=== PATIENT | male | born 1970 | race Caucasian/White ===

== ENCOUNTER 2016-12-03 17:32 | Inpatient (IN) | payer OTHER ==
[~2016-12-03] VITALS: Ht 182.9 cm; Wt 102.0 kg
--- NOTE | ~2016-12-03 | DS ---
Unit #: [id number] #: [id number] Patient: LEE RAM JR [id number] [address] [address] [id number] I MR#: [id number] NAME: LEE ARM JR ROOM: 46 Age: 46 Sex: M Admission Date: 12/04/2016 : 1970 Discharge Date: 12/07/2016 Attending Physician: Darrell Álvarez M.D. Primary Care Physician: Faisal Ni M.D. DISCHARGE SUMMARY PRIMARY DIAGNOSIS Sepsis. SECONDARY DIAGNOSES 1. Obstructive jaundice secondary to gallstones. 2. Acute pancreatitis secondary to obstructive gallstones. 3. Acute cholecystitis secondary to gallstones. 4. Diabetes mellitus type 2. 5. Hyponatremia. 6. Thrombocytopenia. 7. Transaminitis. 8. Ileus. 9. Polycythemia secondary to dehydration. 10. Dehydration. 11. Hypertension. 12. Legally blind. HOSPITAL COURSE The patient was admitted to the hospital and started on Zosyn. Consultations were obtained with Dr. Ochoa with gastroenterology and with Dr. Mcintyre with general surgery. The patient underwent ERCP with stent placement and was referred for laparoscopic cholecystectomy, which was performed on 12/06/2016. The patient had some mild hypotension postoperatively, which was responsive to fluid hydration. His lisinopril was discontinued and can be restarted outpatient if blood pressures and lab work support doing so. The patient's creatinine was 1.4 on the day of discharge. As the patient has had a source of infection removed, no additional antibiotics are felt to be needed at the time of discharge. DISCHARGE DISPOSITION Home. DISCHARGE STATUS Stable. ACTIVITY No driving until off pain medication for 24 hours. DIET Unrestricted. FOLLOWUP Unit #: [id number] #: [id number] Patient: LEE RAM JR 1. Follow up with Dr. Ni, his PCP, in one to three weeks. 2. Follow up with Dr. Ochoa on 01/27/2017 for ERCP and stent removal. 3. Follow up with Dr. Mcintyre with general surgery in two weeks. 4. He is also advised to return to the emergency room if he has any new or worsening symptoms. I specifically discussed fevers, chills, night sweats or increased postprandial pain, lightheadedness with the patient, or failure to tolerate diet. At the time of discharge the patient has none of the above symptoms and is tolerating a diet without any pain or nausea. DISCHARGE MEDICATIONS 1. Glucophage 2 tablets p.o. daily. 2. Zofran 4 mg p.o. q.6 h. p.r.n. nausea. 3. Allopurinol 2 tablets p.o. daily. Resume home dose. 4. [place] 7.5 1-2 tablets p.o. q.6 h. p.r.n. pain. The patient was given a prescription for [address] Mcintyre. Dictated by... Darrell Álvarez M.D. WSB/keith TD: 12/08/2016 07:25 JOB #: [id number] DISCHARGE SUMMARY Page 1 of 1 X Darrell Álvarez MD X DISCHARGE SUMMARY
--- NOTE | ~2016-12-03 | CO ---
Unit #: [id number] #: [id number] Patient: LEE RAM JR [id number] [address] [place], [place] [address] [id number] I MR#: [id number] NAME: LEE RAM JR ROOM: 46 Age: 46 Sex: M Admission Date: 12/04/2016 : 1970 Attending Physician: Darrell Álvarez M.D. Primary Care Physician: Faisal Ni M.D. Consultation Date: 12/04/2016 CONSULTATION REPORT CHIEF COMPLAINT Abdominal pain. HISTORY OF PRESENT ILLNESS This is a 46-year-old gentleman, who was transferred from [facility] for right flank pain and dark urine. The pain also radiates to his right thoracic area posteriorly. He also has had some nausea. The pain started several days ago and he has not had any prior episodes. PAST MEDICAL HISTORY Significant for diabetes, hypertension, and gout. PAST SURGICAL HISTORY He has undergone left hand surgery in the past. MEDICATIONS Please see med rec list for list of medications. ALLERGIES He has no known drug allergies. SOCIAL HISTORY He denies any tobacco or alcohol use. FAMILY HISTORY Negative. REVIEW OF SYSTEMS Negative for fevers. He has noticed some change in his coloration of his eyes and he also notices dark urine. PHYSICAL EXAMINATION VITAL SIGNS: Temperature is 98.0, heart rate 72, respiratory rate is 20, blood pressure is 153/70, BMI is 30. GENERAL: He is in no acute distress. He does have some scleral icterus. NECK: Without masses or bruits. LUNGS: Show good breath sounds bilaterally with equal air exchange. CARDIAC: Shows regular rate and rhythm without murmur. ABDOMEN: Soft, nondistended, and nontender with no organomegaly. EXTREMITIES: Without edema or cyanosis. NEUROLOGIC: He is alert and oriented. There are no focal deficits. DIAGNOSTIC STUDIES LABORATORY RESULTS: White blood count was 20,000, hemoglobin 16. Total Unit #: [id number] #: [id number] Patient: LEE RAM JR bilirubin was 5.1 yesterday. IMAGING STUDIES: Ultrasound showed several large gallstones. OVERALL IMPRESSION This is a 46-year-old gentleman, who likely has common bile duct stone. PLAN Plan is for GI to see the patient for possible ERCP and an interval laparoscopic cholecystectomy afterwards. Dictated by... Miguel Mcintyre III, M.D. VCL/lexy TD: 12/05/2016 17:09 JOB #: [id number] CONSULTATION REPORT Page 1 of 1 X Miguel Mcintyre III, MD X CONSULTATION REPORT
--- NOTE | ~2016-12-03 | EKG ---
PATIENT: LEE RAM UNIT #: [id number] Ventricular Rate: 84 BPM Atrial Rate: 84 BPM P-R Interval: 200 ms QRS Duration: 100 ms Q-T Interval: 362 ms QTC Calculation(Bezet): 427 ms P [place]: 58 degrees Calculated R [place]: 49 degrees Calculated T [place]: 12 degrees Diagnosis Line: Normal sinus rhythm Diagnosis Line: Normal ECG Diagnosis Line: When compared with ECG of 21-MAR-2016 01:55, Diagnosis Line: No significant change was found Diagnosis Line: Confirmed by OMEGA HEREDIA MD ([id number]) on 12/05/2016 Diagnosis Line: 2:02:09 PM INTERPRETING MD: YAN TAYLOR
--- NOTE | ~2016-12-03 | CR84 ---
[facility] A Service of [facility] RADIOLOGY TEXT RESULTS PATIENT: LEE RAM JR LOCATION: [place] [address] : [birth year] UNIT #: [id number] AGE: [address]: Darrell Álvarez MD SEX: M ORDER DR: [id number] [facility] [address] [facility]. [place], [place] [address] [id number] I MR#: [id number] Acc #: [id number] NAME: LEE RAM JR : 1970 SEX: M STUDY DATE/TIME: 12/05/2016 7:29 UNIT: [facility] ROOM: [facility] STUDY DESCRIPTION: CR ERCP Biliary and Pancr SI Attending Physician: Darrell Álvarez M.D. Ordering Physician: Matti Ochoa M.D. Primary Care Physician: Faisal Ni M.D. MEDICAL IMAGING REPORT This report is preliminary unless electronic signature is present EXAM ERCP, 12/05/2016 HISTORY Common bile duct stones, biliary pain for 3 days. Extensive cholelithiasis. ERCP performed for stent placement. FINDINGS ERCP was performed by Dr. Ochoa. 6 spot film radiographs of the right upper quadrant were obtained and 2 minutes of fluoroscopy time was utilized. The pancreatic duct was not injected. Injection of the biliary tree shows dilatation of the common bile duct with filling defects in the duct characteristic of stones. There is normal drainage of contrast into the duodenum and the distal common bile duct near the sphincter of Oddi was normal in appearance. Sphincterotomy was performed by Dr. Ochoa. Balloon catheter was pulled retrograde through the common duct removing stones as per Dr. Ochoa. A stent was then placed in the common bile duct. Dictated by... González Chavez M.D. THIS IS AN ELECTRONICALLY VERIFIED REPORT González Chavez M.D. at 12/06/2016 10:34 AM Barak TD: 12/05/2016 09:29 JOB #: [id number] MEDICAL IMAGING REPORT Page 1 of 1 COPY
--- NOTE | ~2016-12-03 | CT2 ---
[facility] A Service of [facility] RADIOLOGY TEXT RESULTS PATIENT: LEE RAM JR LOCATION: [place] [address] : [birth year] UNIT #: [id number] AGE: [address]: Сергей Luis MD SEX: M ORDER DR: [id number] [place] [id number] I MR#: [id number] Acc #: [id number] NAME: LEE RAM JR : 1970 SEX: M STUDY DATE/TIME: 12/03/2016 20:24 UNIT: [facility]OF ROOM: [id number] STUDY DESCRIPTION: CT Abd and Pelv W Cont Attending Physician: Сергей Luis M.D. Ordering Physician: Taz Rasmussen Aprn Primary Care Physician: Faisal Ni M.D. MEDICAL IMAGING REPORT This report is preliminary unless electronic signature is present. EXAM Abdomen and pelvis CT with contrast 12/03/2016 INDICATION 46-year-old male with blood in the urine, shaking, pain in the hands for 3 days, flank pain on the right, dark urine, history of renal failure, aches all over. TECHNIQUE Contrast enhanced CT abdomen and pelvis was performed and compared with 03/20/2016. This CT examination was performed with one or more of the following radiation dose reduction techniques: automatic exposure control, adjustment of mA and/or kV according to patient size, and iterative reconstruction. FINDINGS CT ABDOMEN: Minimal atelectasis in the lung bases. No effusion. Aorta unremarkable. Spleen, adrenal glands and pancreas unremarkable. There is chronic fullness of the pancreatic head without distinct evidence of focal pancreatic mass. There is no pancreatic ductal dilatation or distinct inflammatory change of the pancreas. Prominent periportal lymph nodes present and not significantly changed and therefore likely reactive. Liver unremarkable. There is cholelithiasis. The gallbladder measures 4.5 cm transverse. There is no convincing CT evidence of acute cholecystitis but this could be further assessed with ultrasound if there is clinical suspicion for acute cholecystitis. Kidneys demonstrate no hydronephrosis or distinct inflammatory change. Incidental tiny cyst in the left kidney. CT PELVIS: Bladder unremarkable. Prostate within normal limits. Tiny STS. [facility] A Service of [facility] RADIOLOGY TEXT RESULTS PATIENT: LEE RAM JR LOCATION: [facility] 460[address]01 : [birth year] UNIT #: [id number] AGE: [address]: Сергей Luis MD SEX: M ORDER DR: inguinal hernia on the right contains fat only. There is diverticulosis. No bowel obstruction. Appendix normal. No inguinal adenopathy or fluid collection. Top normal diameter small bowel loops opacified with contrast and fluid may reflect a mild ileus. No distinct evidence of bowel obstruction or focal inflammatory change of the bowel. There is no free air. No suspicious bone lesion. IMPRESSION 1. Extensive cholelithiasis. The gallbladder is distended without convincing CT evidence of acute cholecystitis but this could be better assessed with ultrasound if there is concern for acute cholecystitis. No intra- or extrahepatic biliary ductal dilatation. 2. Imaging features suggestive of diffuse small bowel ileus. No evidence of bowel obstruction. 3. The appendix is normal. 4. Incidental tiny left renal cyst. 5. Diverticulosis. Dictated by... Victoriano Banks M.D. THIS IS AN ELECTRONICALLY VERIFIED REPORT Victoriano Banks M.D. at 12/04/2016 11:31 PM CARRIE/moncho TD: 12/04/2016 13:01 JOB #: [id number] MEDICAL IMAGING REPORT Page 1 of 1
--- NOTE | ~2016-12-03 | OR ---
Unit #: [id number] #: [id number] Patient: LEE RAM JR [id number] [address] [address] [id number] I MR#: [id number] NAME: LEE RAM JR ROOM: 464 Date of Procedure: 12/05/2016 Admission Date: 12/04/2016 Surgeon: Matti Ochoa M.D. : 1970 Attending Physician: Darrell Álvarez M.D. Primary Care Physician: Faisal Ni M.D. OPERATIVE REPORT ADDITIONAL ATTENDING PHYSICIAN Shama Bennett M.D. PRIMARY CARE PHYSICIAN Faisal Ni M.D. PREOPERATIVE DIAGNOSES The patient has presented with biliary pain consistent with biliary colic and found to have dilated gallbladder, distended gallbladder with gallstones. Although, his common bile duct is not dilated. The liver function abnormalities are consistent with a passage of a common bile duct stone. He has therefore come for endoscopic retrograde cholangiopancreatography. PROCEDURES PERFORMED 1. Endoscopic retrograde cholangiopancreatography and stone extraction. 2. Endoscopic retrograde cholangiopancreatography and biliary and pancreatic stent placements. POSTOPERATIVE DIAGNOSES 1. The patient had normal major papilla and ampullary area. 2. Multiple stones were delivered after balloon extraction and sphincterotomy. These were pigmented stones along with debris. 3. A 10-Pakistani 5-cm biliary stent and a 5-Pakistani 5-cm pancreatic stent were deployed with excellent drainage being achieved. SEDATION USED MAC. DESCRIPTION OF PROCEDURE Following detailed explanation of potential risks and complications of an ERCP, namely perforation, bleeding, and complication related to sedation and pancreatitis, the patient was brought to GI lab and laid in the left semiprone position. Sedation using MAC was given. The lateral viewing duodenoscope was advanced through the oral cavity into the esophagus and advanced into the stomach. Pylorus was intubated in the usual fashion. The scope was advanced in deep descending duodenum. Upon shortening the scope, major papilla and ampulla area was visualized en face. Guidewire based cannulation was used. Initially, pancreatic duct was cannulated. No contrast was injected in the pancreatic duct. Using the double wire technique, the common bile duct was then cannulated and a contrast cholangiogram showed common bile duct being dilated about 9 to 10 mm. The Unit #: [id number] #: [id number] Patient: LEE RAM JR duct was short and stumpy. Intrahepatic biliary tree appeared normal. We then did a limited sphincterotomy about 10 mm. Using a 9 to 12 mm retrieval balloon, the duct was sleep 2 to 3 times and couple of pigmented stones as well as debris was delivered in the duodenum. A normal occlusion cholangiogram with excellent drainage was documented. A 10-Pakistani 5-cm biliary stent was then deployed to ensure continuity of drainage. A 5-Pakistani 5-cm pancreatic stent was also deployed. The cystic duct could not be demonstrated on occlusion cholangiogram. The scope was then withdrawn and the patient returned to the recovery area. He tolerated the procedure without any postprocedure complications. RECOMMENDATIONS The patient will undergo laparoscopic cholecystectomy tomorrow. Dictated by... Charissa Grewal/lexy TD: 12/05/2016 13:51 JOB #: [id number] CC: Shama Bennett M.D. OPERATIVE REPORT Page 1 of 1 X Matti Ochoa MD X PROCEDURE OPERATIVE NOTE
--- NOTE | ~2016-12-03 | CO ---
Unit #: [id number] #: [id number] Patient: LEE RAM [id number] [address] [place], [place] [address] [id number] I MR#: [id number] NAME: LEE RAM ROOM: 460 Age: 46 Sex: M Admission Date: 12/03/2016 : 1970 Attending Physician: Darrell Álvarez M.D. Primary Care Physician: Faisal Ni M.D. Consultation Date: 12/04/2016 CONSULTATION REPORT PRIMARY CARE PHYSICIAN Faisal Ni M.D. REASON FOR CONSULTATION Biliary pancreatitis. HISTORY OF PRESENT ILLNESS Mr. Ram is a very pleasant 46-year-old white gentleman. 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 He was well until 4 or 5 days ago when he started experiencing cramping in the periumbilical area and lower abdomen radiating to the back. The pain was felt mostly in the mid back in the spinal area. In addition, he had some nausea and vomiting, but this resolves. He is still nauseated and has poor appetite. He denies any history of right upper quadrant pain or any history of epigastric or retrosternal pain. The cramping in the mid abdomen is still present; although, it is better after being admitted with IV analgesia. The patient also noticed dark orange coloration of his urine 5 days ago. He was admitted to the hospital after being prompted by his . After admission, the patient has had an ultrasound of the abdomen and lab evaluation that shows cholelithiasis with considerably distended gallbladder and a bilirubin of 5.1, which is mostly direct and elevated transaminases. PAST MEDICAL HISTORY Significant for history of diabetes, hypertension. The patient is also legally blind. CURRENT MEDICATIONS Include Zosyn and morphine sulfate, which had been started in the hospital as well as Zofran, and IV fluids. He is also on Vasotec and NovoLog insulin. ALLERGIES Not listed in the chart. 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 He does not smoke and never drank alcohol. He does spent a lot of time in workout in the gym. Lives at home with his . FAMILY HISTORY None of colon, pancreatic cancer, or liver disease. Unit #: [id number] #: [id number] Patient: ELE RAM JR REVIEW OF SYSTEMS Detailed review of organ systems does not reveal any recent weight loss. No history of fever, chills, or rigors. No history of headache, seizures, chest pain, or syncope. No history of cough, expectoration, or hemoptysis. No history of dysuria, hematuria, or pyuria. No history of focal seizures or extremity weakness. Rest of review of organ systems is unremarkable. PHYSICAL EXAMINATION GENERAL: He is alert and oriented, and comfortable and appears well built. VITAL SIGNS: Stable with a temperature of 98.4, pulse is 96 per minute and regular, respiratory rate is 18, blood pressure 127/82. He weighs 225 pounds. HEENT: He has no pallor. Tinge of icterus. No lymphadenopathy or peripheral edema. CARDIOVASCULAR: Reveal normal heart sounds. No murmurs on auscultation. LUNGS: Reveal normal breath sounds. Good air entry. ABDOMEN: Soft and nontender. Liver and spleen are not palpable. Bowel sounds normal. DIAGNOSTIC STUDIES LABORATORY RESULTS: Shows a leukocytosis with a white count of 20,000 with left shift and platelet count is 174. BUN and creatinine are normal, and sodium is 133, potassium 3.9. Albumin is 4.3, total bilirubin is 5.1, most of which is direct. AST and ALT are 99 and 437 respectively and alkaline phosphatase normal. Lipase is 53. IMAGING STUDIES: The patient's CT scan of the abdomen shows distended gallbladder with cholelithiasis, but no biliary ductal dilation. CLINICAL IMPRESSION 1. The patient most likely has biliary pain may even have a passage of gallstones via the common bile duct with or without biliary pancreatitis. 2. Underlying diabetes with retinopathy. 3. Hypertension. MANAGEMENT PLAN Will include empiric antibiotics, IV fluids, and consider ERCP either later today or tomorrow morning depending upon the availability of the staff and depending upon the availability of the personnel. The above plan was discussed with the patient and his and they were reassured. The patient was also explained the possible complications of pancreatitis, perforation, bleeding. Thank you very much for asking me to see this pleasant gentleman. I appreciate the consult. Dictated by... Charissa Grewal/lexy TD: 12/04/2016 18:41 JOB #: [id number] CC: Charissa Hancock M.D. Unit #: [id number] #: [id number] Patient: LEE RAM JR CONSULTATION REPORT Page 1 of 1 X Matti Ochoa MD CONSULTATION REPORT
--- NOTE | ~2016-12-03 | OR ---
Unit #: [id number] #: [id number] Patient: LEE RAM JR [id number] [address] [address] [id number] I MR#: [id number] NAME: LEE RAM JR ROOM: 464 Date of Procedure: 12/05/2016 Admission Date: 12/04/2016 Surgeon: Matti Ochoa M.D. : 1970 Attending Physician: Darrell Álvarez M.D. Primary Care Physician: Faisal Ni M.D. OPERATIVE REPORT ADDITIONAL ATTENDING PHYSICIAN Darrell Álvarez M.D. PRIMARY CARE PHYSICIAN Faisal Ni M.D. PREOPERATIVE DIAGNOSIS Biliary pancreatitis. PROCEDURE PERFORMED Upper gastrointestinal endoscopy. POSTOPERATIVE DIAGNOSES The patient had grade 2 distal erosive esophagitis. Otherwise, examination was normal up to third part of duodenum. RECOMMENDATIONS The patient must stay on Protonix 40 mg p.o. daily on a long-term basis. SEDATION USED MAC. DESCRIPTION OF PROCEDURE Following detailed explanation of the potential risks and complications of an upper endoscopy, namely perforation, bleeding, and complications related to sedation, the patient was brought to GI lab and laid in the left lateral decubitus position. Lubricated tip of the Olympus video upper endoscope was passed through the bite block into the proximal esophagus under direct vision. The entire esophageal mucosa was examined and the patient was noted to have grade 2 distal erosive esophagitis. The scope was then advanced into the gastric cavity and the latter was insufflated. Mucosa of the fundus, body, and antrum examined and appeared unremarkable. Pylorus was intubated with visualization of the normal duodenal bulb and second and third part of the duodenum. Upon withdrawal and retroflexion, incisura, cardia, and greater curve examined and no additional findings noted. The scope was then withdrawn in the distal esophagus. The entire esophageal mucosa was examined all the way up to pharynx. No additional findings noted. The patient tolerated the procedure without any postprocedure complications. Dictated by... Unit #: [id number] #: [id number] Patient: LEE RAM JR Charissa Grewal/lexy TD: 12/05/2016 13:47 JOB #: [id number] CC: Charissa Hancock M.D. OPERATIVE REPORT Page 1 of 1 X Matti Ochoa MD PROCEDURE OPERATIVE NOTE
--- NOTE | ~2016-12-03 | OR ---
Unit #: [id number] #: [id number] Patient: LEE RAM JR [id number] [address] [place], [place] [address] [id number] MR#: [id number] NAME: LEE RAM JR ROOM: 464 Date of Procedure: 12/06/2016 Admission Date: 12/04/2016 Surgeon: Miguel Mcintyre III, M.D. : 1970 Attending Physician: Darrell Álvarez M.D. Primary Care Physician: Faisal Ni M.D. OPERATIVE REPORT PREOPERATIVE DIAGNOSES Acute cholecystitis and history of common bile duct stone. POSTOPERATIVE DIAGNOSES Acute cholecystitis and history of common bile duct stone. PROCEDURE PERFORMED Laparoscopic cholecystectomy. ANESTHESIA General. SPECIMENS Gallbladder to Pathology. COMPLICATIONS None apparent. ESTIMATED BLOOD LOSS Minimal. INDICATIONS FOR PROCEDURE This is a 46-year-old gentleman, who presented with elevated bilirubin and underwent ERCP and removal of a common bile duct stone. He is here today for laparoscopic cholecystectomy. DESCRIPTION OF PROCEDURE After consent was obtained, the patient was brought to the operating room and placed in the supine position. General anesthetic was administered and his abdomen was prepped and draped in standard surgical fashion. I made a 5-mm incision in the right upper quadrant. I used an Optiview to enter into the peritoneal cavity without any difficulty. CO2 pneumoperitoneum was then established. Next, a second 5-mm port was placed in the supraumbilical region and an 11-mm port was placed in the midepigastric region and a third 5-mm port was placed in the right lateral subcostal region. He had a distended gallbladder that was full of stones. I was able to retract it superiorly and laterally. I dissected out the cystic duct and cystic artery and after these were carefully identified, I placed two clips proximally and one clip distally along both structures and then they were divided. The gallbladder was then taken off the liver bed using the hook cautery. I was able to extract the gallbladder through the epigastric port site. I did have to dilate the fascia and enlarge the Unit #: [id number] #: [id number] Patient: LEE RAM JR skin opening to accommodate the larger stones. The gallbladder was passed off the table and sent to Pathology. I had excellent hemostasis and all needle, sponge, and instrument counts were correct x2. I used 0 Vicryl suture to reapproximate the fascia at the epigastric port site with an interrupted 0 Vicryl [id number]-[id number] suture. The incisions were all injected with 0.25% plain Marcaine. I reapproximated the skin edges with interrupted 4-0 Vicryl subcuticular suture and Steri-Strips were then applied. The patient tolerated the procedure without any problems and returned to the recovery room in stable condition. Dictated by... Miguel Mcintyre III, M.D. VCL/lexy TD: 12/08/2016 11:58 JOB #: [id number] OPERATIVE REPORT Page 1 of 1 X Miguel Mcintyre III, MD PROCEDURE OPERATIVE NOTE
--- NOTE | ~2016-12-03 | HP ---
Unit #: [id number] #: [id number] Patient: LEE RAM JR [id number] [address] [place], [place] [address] [id number] MR#: [id number] NAME: LEE RAM JR ROOM: [facility] Age: 46 Sex: M Admission Date: 12/03/2016 : 1970 Attending Physician: Сергей Luis M.D. Primary Care Physician: Faisal Ni M.D. HISTORY AND PHYSICAL CHIEF COMPLAINT Abdominal cramping, dark urine. HISTORY OF PRESENT ILLNESS Mr. Ram is a really nice 46-year-old male who presents to the ER for above. Patient states he developed some diffuse abdominal cramping approximately 4 days prior to presentation. This was associated with some back pain that is really lumbar in the mid back just above the crease of his buttock. He didn't have any associated diarrhea, he didn't have any nausea, he didn't have any vomiting. He did have some chills and thought perhaps he just had a viral syndrome. However, his symptoms continued over the next three days. He noticed over the course of the last 48 hours that his urine was becoming increasingly dark in color, almost the color of tea. He also notes that his skin was becoming more yellow. He subsequently presented to the emergency department last night. Upon presentation, patient was hypertensive with a blood pressure of 163/107 and mildly tachycardic with a heart rate of 100. ER notes indicate that patient was essentially nontender though he did complain about more epigastric pain when it was present. Blood work did reveal an elevated bilirubin of 5.1 and was primarily direct at 3.3. CT scan of the abdomen and pelvis revealed significant cholelithiasis. Patient was subsequently admitted for presumed choledocholithiasis. This morning, he is still having some abdominal cramping but is much better with morphine and Zofran. He still has not had any emesis. He is complaining of some dry mouth. He has not had any chest pain, any palpitations, any shortness of breath. He has no dyspnea on exertion at baseline. PAST MEDICAL HISTORY 1. Hypertension. 2. Diabetes mellitus type 2, noninsulin requiring, controlled. Patient was diagnosed 5 years ago. He states his sugars generally run anywhere from 80 to 200 depending on what he eats. 3. Vision loss. Patient is legally blind per his report. 4. Known history of cholelithiasis, diagnosed on ultrasound in March of 2016. However, patient was asymptomatic at that time. 5. 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 FAMILY HISTORY Significant for diabetes mellitus. MEDICATIONS Home medications include metformin and lisinopril 20 mg b.i.d. Unit #: [id number] #: [id number] Patient: LEE RAM JR SOCIAL HISTORY Patient is a retired [employer]. He still works at [employer]. He does not drink, does not smoke, does not use any illicit drugs and works out daily. REVIEW OF SYSTEMS Patient did have fever and rigors at home. No new vision loss. Some dry mouth but no sore throat. He did have an intentional weight loss over the last several years of 70 pounds after being diagnosed with diabetes. He has not had any chest pain, palpitations, shortness of breath, cough, again nausea, vomiting, melena, hematochezia, no diarrhea. He has had dark urine but no dysuria. No recent falls. He does have chronic neuropathy of the hands. Otherwise, 10-point review of systems was reviewed and is negative. PHYSICAL EXAM VITAL SIGNS: Temperature 98.0, blood pressure 153/709, pulse rate 72, respiratory rate 20. Oxygen saturation is 96% on room air. GENERAL: The patient is awake, alert. He is oriented x3 and very pleasant. HEENT: Pupils are equally round and they are reactive to light bilaterally. Scleral icterus is noted. No conjunctival pallor. Oropharynx with dry mucous membranes. No erythema or exudate. NECK: Neck is supple. No lymphadenopathy, no thyromegaly, no JVD. HEART: Heart is regular rate and rhythm without murmur, rub or gallop. LUNGS: Lungs are clear to auscultation bilaterally. ABDOMEN: Abdomen is soft. It is minimally tender at most in the epigastric region without any guarding or rebound. It is nondistended. Positive bowel sounds. EXTREMITIES: No cyanosis, clubbing, or edema. Pedal pulses 2/4. SKIN: Skin is warm, moist without rash. However, mild jaundice is noted. NEUROLOGIC: Cranial nerves II-XII are intact. Sensation, strength and deep tendon reflexes are grossly normal. PSYCHIATRIC: Appropriate affect. Alert and oriented x3. No suicidal or homicidal ideation. MUSCULOSKELETAL: No significant joint abnormalities noted on exam. DIAGNOSTIC STUDIES LABORATORY: Lab work done in the emergency department last evening reveals a white blood cell count of 15.9, hemoglobin 17.4 with a platelet count of 174,000. Differential at that time reveals 85% neutrophils. This morning, white blood cell count is up to 20.5, hemoglobin 16.6, platelet count of 154,000 and patient does now have 2% bands. CMP done last evening reveals a sodium of 133, potassium 3.9, chloride 100, bicarb 24, BUN 17, creatinine 1.1, glucose of 216. AST was 99, ALT 437, alk. phos. 83. Bilirubin was 5.1 with 3.3 direct bilirubin and 1.8 indirect. Protein was high at 8.4, lipase was normal at 53. Albumin was also normal. This morning creatinine is 1.2 and glucose is 181. LFTs were not done. Urinalysis reveals 3+ protein but is negative for blood, WBCs or bacteria. CT scan of the abdomen and pelvis done in the emergency department reveals cholelithiasis and distended gallbladder but without evidence of cholecystitis. Small bowel ileus is noted. Diverticulosis also noted and small left renal cyst noted. Unit #: [id number] #: [id number] Patient: LEE RAM JR ASSESSMENT 1. New onset jaundice, likely obstructive in origin with retained common bile duct stone/choledocholithiasis. 2. Transaminitis. 3. SIRS versus sepsis given risk for any sort of underlying cholangitis. 4. Polycythemia, likely secondary to dehydration. 5. Diabetes mellitus type 2, noninsulin requiring and controlled. 6. Hypertension. 7. Vision loss/legally blind. PLAN 1. Will admit patient to inpatient status. 2. Will consult Dr. Ochoa to see given patient may require ERCP. [facility] patient and is planning for laparoscopic cholecystectomy pending intervention by Dr. Ochoa. 3. Will follow trend of LFTs and bilirubin in the morning. 4. I am gonna place patient of empiric Zosyn given risk for cholangitis and follow up white blood cell count. I will note, he has been afebrile throughout hospitalization but he was tachycardic with leukocytosis. 5. Polycythemia has improved with hydration. I am going to increase IV fluids and again continue to monitor. 6. Will obtain Accu-Cheks q.6 hours while NPO. Otherwise, a.c. and h.s. with low dose sliding scale. Home diabetes medications are currently held given NPO status. 7. Will continue patient's home dose of lisinopril. Will provide Vasotec on a p.r.n. basis for blood pressure control. Will have to monitor closely with renal function. 8. SCDs for DVT prophylaxis. Dictated by Shama Bennett M.D. JORGE L/nat TD: 12/04/2016 12:08 JOB #: [id number] HISTORY AND PHYSICAL Page 1 of 1 X Shama Bennett MD X HISTORY AND PHYSICAL
[~2016-12-03 17:32] MED LIST: INVOKANA300 MG PO; KEFLEX500 MG PO; LISINOPRIL PO; LISINOPRIL20 MG; METFORMIN PO; SUDAFED PE SIN1 EACH PO; TYLOX 5/500 CAP1 CAP PO; VICODIN 5/1 TAB 5/50 PO; ZOFRAN ODT4 MG PO; ZYLOPRIM100 MG PO
[2016-12-03 18:39] LABS: URINE SOURCE CLEAN CATCH
[2016-12-03 18:39] LABS: BASOPHIL# 0.1 X10e3 (0-0.3); BASOPHIL% 0.6 % (0-2.5); EOSINOPHIL# 0.3 X10e3 (0-0.7); EOSINOPHIL% 1.7 % (0.0-7.0); HEMATOCRIT 51.5 % (38.0-50.0); HEMOGLOBIN 17.4 gm/dL (13.0-16.0); LYMPHOCYTE% 6.1 % (17.0-45.0); MEAN CELL VOLUME 89.2 FL (83-96); MEAN CORPUSCULAR HEMOGLOBIN 30.1 PG (28-34); MEAN CORPUSCULAR HGB CONC 33.8 g/dL (30-36); MEAN PLATELET VOLUME 9.6 FL (6.5-11.5); MONOCYTE% 6.2 % (3.0-12.0); NEUTROPHIL# 13.6 X10e3 (1.5-7.1); NEUTROPHIL% 85.4 % (40-75); PLATELET COUNT 174 X10e3 (140-420); RED BLOOD COUNT 5.77 X10e (3.90-5.60); RED CELL DISTRIBUTION WIDTH 13.7 % (11.0-15.5); WHITE BLOOD COUNT 15.9 X10e3 (4.0-10.5)
[2016-12-03 18:41] LABS: MICRO INDICATED? YES; URINE APPEARANCE CLEAR; URINE BILIRUBIN POS (NEG); URINE BLOOD TRACE-INTACT (NEG); URINE COLOR DK YELLOW; URINE GLUCOSE NEG (NORM); URINE KETONE TRACE (NEG); URINE LEUKOCYTE ESTERASE NEG (NEG); URINE NITRATE NEG (NEG); URINE PROTEIN 3+ (NEG); URINE SPECIFIC GRAVITY >=1.030 (1.003-1.035)
[2016-12-03 18:41] LABS: DIFF IND NO
[2016-12-03 18:47] LABS: CULTURE INDICATED? NO; URINE BACTERIA NEG (NEG); URINE MUCUS PRESENT; URINE SQUAMOUS EPITHELIAL CELL FEW /[HPF]; URINE WBC 0-2 /[HPF] (0-5)
[2016-12-03 18:56] LABS: ALBUMIN SERUM 4.3 g/dL (3.5-5.0); BILIRUBIN, DIRECT 3.3 mg/dL (0.0-0.2); BILIRUBIN,INDIRECT 1.8 mg/dL (0.0-0.9); BILIRUBIN,TOTAL 5.1 mg/dL (0.2-2.0); BUN/CREATININE RATIO 15.45; CALCIUM SERUM 9.3 mg/dL (8.4-10.2); CREATININE SERUM 1.1 mg/dL (0.6-1.4); GLOM FILT RATE Estimated 79.5 mL/min (>60); POTASSIUM 3.9 mmol/L (3.5-5.1); PROTEIN TOTAL SERUM 8.4 g/dL (6.0-8.3)
[2016-12-04 05:46] LABS: BASOPHIL% 0.2 % (0-2.5); EOSINOPHIL% 0.1 % (0.0-7.0); HEMATOCRIT 48.5 % (38.0-50.0); HEMOGLOBIN 16.6 gm/dL (13.0-16.0); LYMPHOCYTE# 0.7 X10e3 (1.0-3.5); LYMPHOCYTE% 3.2 % (17.0-45.0); MEAN CELL VOLUME 88.8 FL (83-96); MEAN CORPUSCULAR HEMOGLOBIN 30.3 PG (28-34); MEAN CORPUSCULAR HGB CONC 34.2 g/dL (30-36); MEAN PLATELET VOLUME 9.7 FL (6.5-11.5); MONOCYTE# 1.4 X10e3 (0-1.0); NEUTROPHIL# 18.4 X10e3 (1.5-7.1); NEUTROPHIL% 89.5 % (40-75); PLATELET COUNT 154 X10e3 (140-420); RED BLOOD COUNT 5.47 X10e (3.90-5.60); RED CELL DISTRIBUTION WIDTH 13.9 % (11.0-15.5); WHITE BLOOD COUNT 20.5 X10e3 (4.0-10.5)
[2016-12-04 05:59] LABS: DIFF IND YES
[2016-12-04 06:12] LABS: BUN/CREATININE RATIO 13.33; CREATININE SERUM 1.2 mg/dL (0.6-1.4); GLOM FILT RATE Estimated 71.6 mL/min (>60); POTASSIUM 4.3 mmol/L (3.5-5.1)
[2016-12-04 06:23] LABS: PLATELET ESTIMATE NORMAL (NORMAL)
[2016-12-05 03:26] LABS: BASOPHIL# 0.1 X10e3 (0-0.3); BASOPHIL% 0.8 % (0-2.5); DIFF IND NO; EOSINOPHIL# 0.2 X10e3 (0-0.7); EOSINOPHIL% 1.7 % (0.0-7.0); HEMATOCRIT 46.1 % (38.0-50.0); LYMPHOCYTE# 0.8 X10e3 (1.0-3.5); LYMPHOCYTE% 8.6 % (17.0-45.0); MEAN CELL VOLUME 88.3 FL (83-96); MEAN CORPUSCULAR HEMOGLOBIN 30.7 PG (28-34); MEAN CORPUSCULAR HGB CONC 34.7 g/dL (30-36); MEAN PLATELET VOLUME 9.8 FL (6.5-11.5); MONOCYTE% 10.9 % (3.0-12.0); NEUTROPHIL# 7.5 X10e3 (1.5-7.1); PLATELET COUNT 138 X10e3 (140-420); RED BLOOD COUNT 5.22 X10e (3.90-5.60); RED CELL DISTRIBUTION WIDTH 13.8 % (11.0-15.5); WHITE BLOOD COUNT 9.7 X10e3 (4.0-10.5)
[2016-12-05 03:50] LABS: ALBUMIN SERUM 3.4 g/dL (3.5-5.0); BILIRUBIN,TOTAL 4.8 mg/dL (0.2-2.0); CALCIUM SERUM 8.7 mg/dL (8.4-10.2); GLOM FILT RATE Estimated 89.2 mL/min (>60); POTASSIUM 4.1 mmol/L (3.5-5.1)
[2016-12-06 03:25] LABS: BASOPHIL% 0.5 % (0-2.5); EOSINOPHIL# 0.2 X10e3 (0-0.7); EOSINOPHIL% 2.6 % (0.0-7.0); HEMATOCRIT 44.1 % (38.0-50.0); HEMOGLOBIN 15.4 gm/dL (13.0-16.0); LYMPHOCYTE# 0.9 X10e3 (1.0-3.5); LYMPHOCYTE% 9.8 % (17.0-45.0); MEAN CELL VOLUME 87.9 FL (83-96); MEAN CORPUSCULAR HEMOGLOBIN 30.7 PG (28-34); MEAN CORPUSCULAR HGB CONC 34.9 g/dL (30-36); MEAN PLATELET VOLUME 9.6 FL (6.5-11.5); MONOCYTE# 1.2 X10e3 (0-1.0); MONOCYTE% 13.8 % (3.0-12.0); NEUTROPHIL# 6.5 X10e3 (1.5-7.1); NEUTROPHIL% 73.3 % (40-75); PLATELET COUNT 133 X10e3 (140-420); RED BLOOD COUNT 5.01 X10e (3.90-5.60); RED CELL DISTRIBUTION WIDTH 13.8 % (11.0-15.5); WHITE BLOOD COUNT 8.8 X10e3 (4.0-10.5)
[2016-12-06 03:29] LABS: DIFF IND NO
[2016-12-06 04:07] LABS: ALBUMIN SERUM 3.3 g/dL (3.5-5.0); BILIRUBIN,TOTAL 3.7 mg/dL (0.2-2.0); BUN/CREATININE RATIO 12.72; CALCIUM SERUM 8.4 mg/dL (8.4-10.2); CREATININE SERUM 1.1 mg/dL (0.6-1.4); GLOM FILT RATE Estimated 79.5 mL/min (>60); MAGNESIUM 1.6 mg/dL (1.6-3.0); POTASSIUM 3.9 mmol/L (3.5-5.1); PROTEIN TOTAL SERUM 6.7 g/dL (6.0-8.3)
[2016-12-07 03:05] LABS: MEAN CELL VOLUME 88.6 FL (83-96); MEAN CORPUSCULAR HEMOGLOBIN 29.7 PG (28-34); MEAN CORPUSCULAR HGB CONC 33.5 g/dL (30-36); MEAN PLATELET VOLUME 10.2 FL (6.5-11.5); RED BLOOD COUNT 3.83 X10e (3.90-5.60); RED CELL DISTRIBUTION WIDTH 13.9 % (11.0-15.5); WHITE BLOOD COUNT 12.8 X10e3 (4.0-10.5)
[2016-12-07 03:20] LABS: HEMOGLOBIN 11.4 gm/dL (13.0-16.0)
[2016-12-07 03:33] LABS: BILIRUBIN,TOTAL 3.5 mg/dL (0.2-2.0); BUN/CREATININE RATIO 13.57; CALCIUM SERUM 8.3 mg/dL (8.4-10.2); CREATININE SERUM 1.4 mg/dL (0.6-1.4); GLOM FILT RATE Estimated 59.4 mL/min (>60); POTASSIUM 3.9 mmol/L (3.5-5.1); PROTEIN TOTAL SERUM 6.6 g/dL (6.0-8.3)
[2016-12-07] MEDS ORDERED: NORCO 7.5-3251 EACH PO (09:57)
[2016-12-07 14:52] LABS: HA AB IGM (HEPPAN) Nonreactive (()); HB CORE AB IGM (HEPPAN) Nonreactive (Nonreactive); HB S AG (HEPPAN) Nonreactive (Nonreactive); HEP C AB (HEPPAN) Nonreactive (Nonreactive); HEP C AB SIGNAL TO CUTOFF 0.01 ratio (<1.00)
== END 2016-12-07 10:42 | disposition home or self-care (01) | DRG 853 ==
LOC: SED 17:32 → SEDOF 22:26 → C4B 22:26 → SED 22:26 → C4C 12-04 00:47 → C4B 12-04 00:47 → SEDOF 12-04 00:47 → C4B 12-05 07:09 → C4C 12-05 13:25 → C4B 12-05 13:25 → C4C 12-07 10:42
PROVIDERS: Internal Medicine; Internal Medicine Gastroenterology; Nurse Practitioner Family; Surgery
PROC: 0FC98ZZ Extirpation of Matter from Common Bile Duct, Via Natural or Artificial Opening Endoscopic (ICD-10-PCS; 2016-12-05 06:38)
PROC: 0F798DZ Dilation of Common Bile Duct with Intraluminal Device, Via Natural or Artificial Opening Endoscopic (ICD-10-PCS; 2016-12-05 06:38)
PROC: 0F7D8DZ Dilation of Pancreatic Duct with Intraluminal Device, Via Natural or Artificial Opening Endoscopic (ICD-10-PCS; 2016-12-05 06:38)
PROC: 0DJ08ZZ Inspection of Upper Intestinal Tract, Via Natural or Artificial Opening Endoscopic (ICD-10-PCS; 2016-12-05 06:38)
PROC: 0FT44ZZ Resection of Gallbladder, Percutaneous Endoscopic Approach (ICD-10-PCS; principal; 2016-12-06 12:30)
DX: A41.9 Sepsis, unspecified organism (principal); K85.90 Acute pancreatitis without necrosis or infection, unspecified; D69.6 Thrombocytopenia, unspecified; K80.42 Calculus of bile duct with acute cholecystitis without obstruction; E87.1 Hypo-osmolality and hyponatremia; K56.7 Ileus, unspecified; K22.10 Ulcer of esophagus without bleeding; I10 Essential (primary) hypertension; E11.319 Type 2 diabetes mellitus with unspecified diabetic retinopathy without macular edema; E86.0 Dehydration; D75.1 Secondary polycythemia; H54.8 Legal blindness, as defined in USA; Z83.3 Family history of diabetes mellitus
CPT/HCPCS: 36415; 74177; 74330; 80048; 80053; 80074; 80076; 81003; 82150; 82947; 83036; 83690; 83735; 85025; 85027; 88304; 93005; 96361; 96374; 96375; 96376; 99285; C9113; G0378; J0330; J1610; J1815; J1885; J2250; J2270; J2370; J2405; J2543; J2710; J3010; Q9967